=== PATIENT | female | born 1985 | race American Indian/Alaskan Native ===

== ENCOUNTER 2021-11-13 11:25 | Inpatient (IN) | payer SELFPAY ==
--- NOTE | 2021-11-13 12:41 | Emergency Department Report ---
Blank Doc - Documentation Documentation: 36-year-old female that presents with bowel pain with nausea vomiting. 1- This is a initial triage assessment/medical screening only. Full assessment and work-up will be completed once the patient is in proper hospital gown, ED bed and in a private room setting. This initial assessment/diagnostic orders/clinical plan/ treatment(s) is/are subject to change based on pt's health status, clinical progression and re-assessment by fellow clinical providers in the ED. Further treatment and workup at subsequent clinical providers discretion. Patient/guardians urged not to elope from ED as their condition may be serious if not clinically assessed and managed. 2-labs 3-UA The patient was evaluated in the emergency department for symptoms described in the history of present illness. He/she was evaluated in the context of the global COVID-19 pandemic, which necessitated consideration that the patient might be at risk for infection with the virus that causes COVID-19. Institutional protocols and algorithms that pertain to the evaluation of patients at risk for COVID-19 are in a state of rapid change based on information released by regulatory bodies including the CDC and federal and state organizations. These policies and algorithms were followed during the patient's care in the emergency department. Please note that these policies, procedures and recommendations changed on a rapid basis.
[2021-11-13 12:58] LABS: Hematocrit 44.6 % (30.3-42.9); Hemoglobin 14.8 gm/dl (10.1-14.3); Mean Corpuscular HGB Conc 33 % (30-34); Mean Corpuscular Volume 81 fl (79-97); Platelet Count 294 K/mm3 (140-440); Red Cell Distribution Width 13.8 % (13.2-15.2)
[2021-11-13 13:19] LABS: Alanine Aminotransferase 17 units/L (7-56); Albumin 4.7 g/dL (3.9-5); BUN/Creatinine Ratio 13; Blood Urea Nitrogen 9 mg/dL (7-17); Calcium 9.6 mg/dL (8.4-10.2); Hemolysis Index 10
[2021-11-13 14:08] LABS: Basophils % (Manual) 0 % (0.0-1.8); Eosinophils % (Manual) 0 % (0.0-4.3); Monocytes % (Manual) 0 % (0.0-7.3); Total Cells Counted 100
[2021-11-13 14:09] LABS: Anisocytosis 1+; Platelet Estimate Consistent w Auto
[2021-11-13] MEDS ORDERED: ONDANSETRON 4 MG/2 ML INJ IV ONE (16:13)
[2021-11-13] MEDS ORDERED: SODIUM CHLORIDE 0.9% 1000 ML 1,000 ML IV ONE (16:13)
[2021-11-13] MEDS ORDERED: PANTOPRAZOLE 40 MG INJ IV ONE (16:14)
--- NOTE | 2021-11-13 19:48 | Cat Scan Report ---
CT ABDOMEN AND PELVIS WITH CONTRAST INDICATION / CLINICAL INFORMATION: pain. TECHNIQUE: Axial CT images were obtained through the abdomen and pelvis after 100 IV contrast. All C T scans at this location are performed using CT dose reduction for ALARA by means of automated exposu re control. COMPARISON: None available. FINDINGS: LOWER CHEST: No significant abnormality. LIVER: No significant abnormality. GALLBLADDER: No significant abnormality. BILE DUCTS: No significant abnormality. PANCREAS: No significant abnormality. SPLEEN: No significant abnormality. ADRENALS: No significant abnormality. RIGHT KIDNEY / URETER: Tiny cysts. LEFT KIDNEY / URETER: No significant abnormality. STOMACH / SMALL BOWEL: Small hernia with distal esophageal thickening. COLON: Mild to moderate thickening and surrounding pericolic injection, relatively diffusely. Minimal distention. Minimal diverticula distally. APPENDIX: Borderline caliber dilation 8 mm at the mid distal segment. Equivocal mild periappendiceal fat injection. PERITONEUM: No free fluid. No free air. No fluid collection. LYMPH NODES: No significant adenopathy. AORTA / ARTERIES: No significant abnormality. IVC / VEINS: No significant abnormality. URINARY BLADDER: No significant abnormality. REPRODUCTIVE ORGANS: No significant abnormality. ADDITIONAL FINDINGS: None. SKELETAL SYSTEM: No significant abnormality. IMPRESSION: 1. Borderline dilation of the mid distal aspect of the appendix with suggestion of trace periappendic eal inflammatory change, appearances concerning for early, uncomplicated appendicitis in the appropri ate setting. If there is clinical and/or biochemical uncertainty, consider short interval interval re peat examination to include oral contrast. 2. Features of mild diffuse colitis, potentially accentuated on the basis only partial distention. No complicating features. 2. Mild distal esophageal thickening supporting esophagitis, potentially reflux in nature. Signer Name: Onelia Wilson MD Signed: 11/13/2021 7:44 PM Workstation Name: [email or web address] (formerly [email or web address])
[2021-11-13] MEDS ORDERED: PIPERACILLIN/TAZOBACTAM 3.375 3.375 GM/50 ML BAG IV ONE (20:03)
[2021-11-13 21:06] LABS: Color,Urine Colorless (Yellow)
[2021-11-13 21:10] LABS: HCG Qualitative,Urine Negative (Negative)
[2021-11-13 21:15] LABS: Amphetamine Screen,Urine Negative; Benzodiazepines Screen,Urine Negative; Cocaine Screen,Urine Negative; Methadone Screen,Urine Negative; Opiate Screen,Urine Negative
[2021-11-13 21:34] LABS: Cannabinoid Screen,Urine Positive
--- NOTE | 2021-11-13 22:09 | Emergency Department Report ---
ED General Adult HPI - General Chief complaint: Nausea/Vomiting/Diarrhea Stated complaint: THROWING UP BLOOD Time Seen by Provider: 11/13/21 12:34 Source: patient Mode of arrival: Wheelchair Limitations: No Limitations - History of Present Illness Initial comments: nausea, vomiting. onset today. no urinary complaint. no fever no rash -: Gradual, hour(s) Location: abdomen Radiation: non-radiation Severity scale (0 -10): 2 Improves with: none Worsens with: none Associated Symptoms: nausea/vomiting Treatments Prior to Arrival: none - Related Data Allergies Allergy/AdvReac Type Severity Reaction Status Date / Time No Known Allergies Allergy Verified 11/13/21 12:27 ED Review of Systems ROS: Stated complaint: THROWING UP BLOOD Other details as noted in HPI Constitutional: denies: chills, fever Eyes: denies: eye pain, eye discharge, vision change ENT: denies: ear pain, throat pain Respiratory: denies: cough, shortness of breath, wheezing Cardiovascular: denies: chest pain, palpitations Endocrine: no symptoms reported Gastrointestinal: denies: abdominal pain, nausea, diarrhea Genitourinary: denies: urgency, dysuria, discharge Musculoskeletal: denies: back pain, joint swelling, arthralgia Skin: denies: rash, lesions Neurological: denies: headache, weakness, paresthesias Psychiatric: denies: anxiety, depression Hematological/Lymphatic: denies: easy bleeding, easy bruising ED Past Medical Hx - Past Medical History Previous Medical History?: No Hx Hypertension: No Hx CVA: No ED Physical Exam - General Limitations: No Limitations General appearance: alert, in no apparent distress - Head Head exam: Present: atraumatic, normocephalic - Eye Eye exam: Present: normal appearance - ENT ENT exam: Present: mucous membranes moist - Neck Neck exam: Present: normal inspection - Respiratory Respiratory exam: Present: normal lung sounds bilaterally. Absent: respiratory distress - Cardiovascular Cardiovascular Exam: Present: regular rate, normal rhythm. Absent: systolic murmur, diastolic murmur, rubs, gallop - GI/Abdominal GI/Abdominal exam: Present: tenderness, normal bowel sounds - Extremities Exam Extremities exam: Present: normal inspection - Back Exam Back exam: Present: normal inspection - Neurological Exam Neurological exam: Present: alert, oriented X3 - Psychiatric Psychiatric exam: Present: normal affect, normal mood - Skin Skin exam: Present: warm, dry, intact, normal color. Absent: rash ED Course Vital Signs 11/13/21 11/13/21 12:26 15:24 Temperature 98 F 98.7 F Pulse Rate 64 80 Respiratory 16 18 Rate Blood Pressure 120/82 128/78 [Left] O2 Sat by Pulse 99 100 Oximetry ED Medical Decision Making - Lab Data Result diagrams: 11/13/21 12:41 11/13/21 12:41 Critical care attestation.: If time is entered above; I have spent that time in minutes in the direct care of this critically ill patient, excluding procedure time. ED Disposition Clinical Impression: Appendicitis, Acute esophagitis, Nausea & vomiting, Leukocytosis Disposition: ADMITTED INPATIENT Is pt being admited?: Yes Does the pt Need Aspirin: No Condition: Stable Referrals: PRIMARY CARE, [Primary Care Provider] - 3-5 Days
[2021-11-13] MEDS ORDERED: MAGNESIUM HYDROXIDE (MOM) ORAL LIQD UDC PO PRN (23:05)
[2021-11-13] MEDS ORDERED: ACETAMINOPHEN 325 MG TAB PO PRN (23:05)
[2021-11-13] MEDS ORDERED: MORPHINE 2 MG/1 ML INJ IV PRN (23:05)
[2021-11-13] MEDS ORDERED: MORPHINE 4 MG/1 ML INJ IV PRN (23:05)
[2021-11-13] MEDS ORDERED: ONDANSETRON 4 MG/2 ML INJ IV PRN (23:05)
[2021-11-13] MEDS ORDERED: SODIUM CHLORIDE 0.9% 1000 ML 1,000 ML IV SCH (23:15)
--- NOTE | 2021-11-13 23:15 | History and Physical Report ---
History of Present Illness Date of examination: 11/13/21 Date of admission: 11/13/2021 Chief complaint: Nausea and vomiting History of present illness: 36-year-old -[place] female with no significant past medical history presenting in the emergency room today complaining of nausea and vomiting and some epigastric discomfort. Symptoms have been ongoing over the course of the day. She denies any fever or chills, no chest pain or shortness of breath, no headache or dizziness and no diaphoresis. Patient denies any sick contacts and no recent travel. Patient works with a [employer] agency. Work-up in the emergency room today, labs are significant for leukocytosis of 20.5, hemoglobin of 14.8 and hematocrit of 44.6. Urinalysis was essentially within normal limits. UDS was significant for marijuana. CT of the abdomen and pelvis were concerning for early uncomplicated appendicitis, there is also mild distal esophageal thickening supporting esophagitis. General surgeon on-call has been notified and consulted by the ER physician. Past History Past Medical History: No medical history Past Surgical History: No surgical history Social history: smoking (Smokes marijuana occasionally), alcohol abuse (Drinks alcohol occasionally) Family history: no significant family history Medications and Allergies Allergies Allergy/AdvReac Type Severity Reaction Status Date / Time No Known Allergies Allergy Verified 11/13/21 12:27 Active Meds: Active Medications Acetaminophen (Acetaminophen 325 Mg Tab) 650 mg PO Q4H PRN PRN Reason: Pain MILD(1-3)/Fever >100.5/LYMAN Sodium Chloride (Nacl 0.9% 1000 Ml) 1,000 mls @ 125 mls/hr IV DIRECT KADEN Magnesium Hydroxide (Magnesium Hydroxide (Mom) Oral Liqd Udc) 30 ml PO Q4H PRN PRN Reason: Constipation Morphine Sulfate (Morphine 2 Mg/1 Ml Inj) 2 mg IV Q4H PRN PRN Reason: Pain, Moderate (4-6) Morphine Sulfate (Morphine 4 Mg/1 Ml Inj) 4 mg IV Q4H PRN PRN Reason: Pain , Severe (7-10) Ondansetron HCl (Ondansetron 4 Mg/2 Ml Inj) 4 mg IV Q8H PRN PRN Reason: Nausea And Vomiting Sodium Chloride (Sodium Chloride 0.9% 10 Ml Flush Syringe) 10 ml IV BID KADEN Sodium Chloride (Sodium Chloride 0.9% 10 Ml Flush Syringe) 10 ml IV PRN PRN PRN Reason: LINE FLUSH Review of Systems Constitutional: no fever, no chills Ears, nose, mouth and throat: no nasal congestion, no sore throat Cardiovascular: no chest pain, no palpitations Respiratory: no cough, no shortness of breath Gastrointestinal: abdominal pain, nausea, vomiting, no diarrhea Genitourinary Female: no pelvic pain, no flank pain, no dysuria, no hematuria Musculoskeletal: no neck pain, no low back pain Integumentary: no rash, no pruritis Neurological: no headaches, no confusion Psychiatric: no anxiety, no depression Endocrine: no polyphagia, no polydipsia, no polyuria, no nocturia Exam - Constitutional Vitals: Temp Pulse Resp BP Pulse Ox 98.7 F 80 18 128/78 100 11/13/21 15:24 11/13/21 15:24 11/13/21 15:24 11/13/21 15:24 11/13/21 15:24 General appearance: Present: no acute distress, well-nourished - EENT Eyes: Present: PERRL, EOM intact. Absent: scleral icterus ENT: hearing intact, clear oral mucosa, dentition normal - Neck Neck: Present: supple, normal ROM - Respiratory Respiratory effort: normal Respiratory: bilateral: CTA - Cardiovascular Rhythm: regular Heart Sounds: Present: S1 & S2. Absent: gallop, systolic murmur, diastolic murmur, rub, click - Extremities Extremities: no ischemia, No edema, Full ROM Peripheral Pulses: within normal limits - Abdominal General gastrointestinal: Present: soft, tender (Mild tenderness in the right lower quadrant, no rebound tenderness and no guarding.), non-distended, normal bowel sounds. Absent: mass - Integumentary Integumentary: Present: clear, warm, dry, normal turgor. Absent: rash - Musculoskeletal Musculoskeletal: strength equal bilaterally - Psychiatric Psychiatric: appropriate mood/affect, intact judgment & insight, memory intact - Neurologic Neurologic: CNII-XII intact, no focal deficits, moves all extremities Results - Labs CBC & Chem 7: 11/13/21 12:41 11/13/21 12:41 Labs: Abnormal lab results 11/13/21 11/13/21 11/13/21 Range/Units 12:41 12:41 16:59 WBC 20.5 H (4.5-11.0) K/mm3 RBC 5.50 H (3.65-5.03) M/mm3 Hgb 14.8 H (10.1-14.3) gm/dl Hct 44.6 H (30.3-42.9) % MCH 27 L (28-32) pg Seg Neuts % (Manual) 95.0 H (40.0-70.0) % Lymphocytes % (Manual) 5.0 L (13.4-35.0) % Seg Neutrophils # Man 19.5 H (1.8-7.7) K/mm3 Lymphocytes # (Manual) 1.0 L (1.2-5.4) K/mm3 Glucose 136 H (65-100) mg/dL Total Creatine Kinase (30-135) units/L Lipase 11 L 11 L (13-60) units/L // Range/Units 16:59 WBC (4.5-11.0) K/mm3 RBC (3.65-5.03) M/mm3 Hgb (10.1-14.3) gm/dl Hct (30.3-42.9) % MCH (28-32) pg Seg Neuts % (Manual) (40.0-70.0) % Lymphocytes % (Manual) (13.4-35.0) % Seg Neutrophils # Man (1.8-7.7) K/mm3 Lymphocytes # (Manual) (1.2-5.4) K/mm3 Glucose (65-100) mg/dL Total Creatine Kinase 144 H (30-135) units/L Lipase (13-60) units/L Assessment and Plan Assessments: 1. Abdominal pain 2. Nausea and vomiting 3. Acute appendicitis 4. Acute esophagitis Plan: 1. Patient admitted and placed on IV fluid IV analgesic medication 2. Patient kept NPO. 3. Consult placed to general surgery for evaluation and recommendations. 4. We will place patient on proton pump inhibitor. We will request GI evaluation. DVT prophylaxis: Sequential compression device CODE STATUS: Full code
[2021-11-14] MEDS: PIPERACILLIN/TAZOBACTAM 3.375 3.375 GM/50 ML BAG IV SCH ×3 (05:58→22:01)
[2021-11-14 08:03] LABS: BUN/Creatinine Ratio 9; Blood Urea Nitrogen 8 mg/dL (7-17); Calcium 9.4 mg/dL (8.4-10.2); Hemolysis Index 8
[2021-11-14] MEDS: PANTOPRAZOLE 40 MG INJ IV SCH ×3 (08:40→22:03)
[2021-11-14] MEDS ORDERED: D5W/0.9% NACL 1,000 ML IV SCH (11:00)
--- NOTE | 2021-11-14 13:54 | Event Note ---
Date: 11/14/21 Full GI consult dictate - awaiting surgery consult for ?appendicitis - diet when ok with surgery - possible egd in am based on progress - will follow
--- NOTE | 2021-11-14 14:03 | Consultation ---
History of Present Illness Consult date: 11/14/21 Reason for consult: abdominal pain - History of present illness History of present illness: 36 yo female who presented to the ED c/o epigastric/chest pain with nausea and hematemesis. ER physician ordered a CT abdomen and pelvis which showed possible early appendicitis. Pt states she feels much better c/w yesterday and she now denies nausea, further vomiting or abdominal pain. Past History Past Medical History: No medical history Past Surgical History: No surgical history Social history: smoking (Smokes marijuana occasionally), alcohol abuse (Drinks alcohol occasionally) Family history: no significant family history Medications and Allergies Allergies Allergy/AdvReac Type Severity Reaction Status Date / Time No Known Allergies Allergy Verified 11/13/21 12:27 Home Medications Medication Instructions Recorded Confirmed Last Taken Type No Known Home Medications [No 11/14/21 11/14/21 Unknown History Reported Home Medications] Active Meds: Active Medications Acetaminophen (Acetaminophen 325 Mg Tab) 650 mg PO Q4H PRN PRN Reason: Pain MILD(1-3)/Fever >100.5/LYMAN Piperacillin Sod/Tazobactam Sod (Zosyn/Ns 3.375gm/50ml) 3.375 gm in 50 mls @ 100 mls/hr IV Q8H KADEN; Protocol Last Admin: 11/14/21 13:05 Dose: 100 mls/hr Dextrose/Sodium Chloride (D5ns) 1,000 mls @ 100 mls/hr IV DIRECT KADEN Last Admin: 11/14/21 13:05 Dose: 100 mls/hr Magnesium Hydroxide (Magnesium Hydroxide (Mom) Oral Liqd Udc) 30 ml PO Q4H PRN PRN Reason: Constipation Morphine Sulfate (Morphine 2 Mg/1 Ml Inj) 2 mg IV Q4H PRN PRN Reason: Pain, Moderate (4-6) Morphine Sulfate (Morphine 4 Mg/1 Ml Inj) 4 mg IV Q4H PRN PRN Reason: Pain , Severe (7-10) Ondansetron HCl (Ondansetron 4 Mg/2 Ml Inj) 4 mg IV Q8H PRN PRN Reason: Nausea And Vomiting Last Admin: 11/14/21 03:39 Dose: 4 mg Pantoprazole Sodium (Pantoprazole 40 Mg Inj) 40 mg IV BID KADEN Last Admin: 11/14/21 11:23 Dose: Not Given Sodium Chloride (Sodium Chloride 0.9% 10 Ml Flush Syringe) 10 ml IV BID KADEN Last Admin: 11/14/21 13:05 Dose: Not Given Sodium Chloride (Sodium Chloride 0.9% 10 Ml Flush Syringe) 10 ml IV PRN PRN PRN Reason: LINE FLUSH Review of Systems All systems: negative (none) Exam Vital Signs Temp Pulse Resp BP Pulse Ox 98 F 64 16 120/82 99 11/13/21 12:11/13/21 12:11/13/21 12:11/13/21 12:11/13/21 12:26 - General physical appearance Positive: well developed, well nourished, no distress - Eyes Positive: PERRL, normal occular movement - ENT Positive: normal pinna, normal nares, normal mucosa, no hearing loss, no congestion - Neck Positive: no masses, no bruits, trachea midline, no venous distension - Respiratory Positive: normal expansion, normal respiratory effort, clear to auscultation - Cardiovascular Rhythm: regular Heart Sounds: Present: S1 & S2. Absent: rub, click - Extremities Extremities: no ischemia, pulses symmetrical, No edema - Breasts Breasts: normal, no mass, no skin changes - Abdomen Abdomen: Present: soft, bowel sounds normal. Absent: tender, distended, rebound, guarding Hernia: none - Genitourinary Male Genitourinary: normal Female Genitourinary: normal - Integumentary no rash, no growths, no abnormal pigmentation - Neurologic Neurologic: alert and oriented to time, place and person, motor strength and sensation are grossly intact - Musculoskeletal normal gait, normal posture - Psychiatric Psychiatric: appropriate mood/affect, intact judgment & insight Results - Labs 11/13/21 12:41 11/14/21 05:14 Abnormal lab results 11/13/21 11/13/21 11/13/21 Range/Units 12:41 16:59 16:59 Seg Neuts % (Manual) 95.0 H (40.0-70.0) % Lymphocytes % (Manual) 5.0 L (13.4-35.0) % Seg Neutrophils # Man 19.5 H (1.8-7.7) K/mm3 Lymphocytes # (Manual) 1.0 L (1.2-5.4) K/mm3 Potassium (3.6-5.0) mmol/L Total Creatine Kinase 144 H (30-135) units/L Lipase 11 L (13-60) units/L 11/14/21 Range/Units 05:14 Seg Neuts % (Manual) (40.0-70.0) % Lymphocytes % (Manual) (13.4-35.0) % Seg Neutrophils # Man (1.8-7.7) K/mm3 Lymphocytes # (Manual) (1.2-5.4) K/mm3 Potassium 3.5 L (3.6-5.0) mmol/L Total Creatine Kinase (30-135) units/L Lipase (13-60) units/L Diabetes panel 11/14/21 Range/Units 05:14 Sodium 139 (137-145) mmol/L Potassium 3.5 L (3.6-5.0) mmol/L Chloride 98.5 (98-107) mmol/L Carbon Dioxide 23 (22-30) mmol/L BUN 8 (7-17) mg/dL Creatinine 0.9 (0.6-1.2) mg/dL Glucose 88 (65-100) mg/dL Calcium 9.4 (8.4-10.2) mg/dL Calcium panel 11/14/21 Range/Units 05:14 Calcium 9.4 (8.4-10.2) mg/dL Pituitary panel 11/14/21 Range/Units 05:14 Sodium 139 (137-145) mmol/L Potassium 3.5 L (3.6-5.0) mmol/L Chloride 98.5 (98-107) mmol/L Carbon Dioxide 23 (22-30) mmol/L BUN 8 (7-17) mg/dL Creatinine 0.9 (0.6-1.2) mg/dL Glucose 88 (65-100) mg/dL Calcium 9.4 (8.4-10.2) mg/dL Adrenal panel 11/14/21 Range/Units 05:14 Sodium 139 (137-145) mmol/L Potassium 3.5 L (3.6-5.0) mmol/L Chloride 98.5 (98-107) mmol/L Carbon Dioxide 23 (22-30) mmol/L BUN 8 (7-17) mg/dL Creatinine 0.9 (0.6-1.2) mg/dL Glucose 88 (65-100) mg/dL Calcium 9.4 (8.4-10.2) mg/dL - Imaging CT scan - abdomen: report reviewed CT scan - pelvis: report reviewed Assessment and Plan - Patient Problems (1) Nausea & vomiting Current Visit: Yes Status: Acute Plan to address problem: 1) Nausea and vomiting as well as epigastric/chest pain have resolved. Pt never c/o lower abdominal pain. I have ordered clear liquids. Highly doubt she has appendicitis. Recommend further evaluation per GI for h/o epigastric pain and hematemesis.
--- NOTE | 2021-11-14 14:49 | Progress Note ---
Assessment and Plan 36-year-old -[place] female with no significant past medical history presenting in the emergency room complaining of nausea and vomiting and some epigastric discomfort. Work-up in the emergency room today, labs are significant for leukocytosis of 20.5, hemoglobin of 14.8 and hematocrit of 44.6. Urinalysis was essentially within normal limits. UDS was significant for marijuana. CT of the abdomen and pelvis were concerning for early uncomplicated appendicitis, there is also mild distal esophageal thickening supporting esophag itis. General surgeon on-call has been notified and consulted by the ER physician. Assessment and plan: 1. Abdominal pain 2. Nausea and vomiting 3. Acute appendicitis 4. Acute esophagitis Plan: -- Patient admitted and placed on IV fluid IV analgesic medication -- Patient kept NPO. now started clear liquid -- Consult placed to general surgery for evaluation and recommendations - doubt for appendicitis -- patient on proton pump inhibitor. We will request GI evaluation. DVT prophylaxis: Sequential compression device CODE STATUS: Full code Subjective Date of service: 11/14/21 Interval history: Patient seen and examined. Medical records and medication list reviewed. No acute event overnight noted by the RN. Patient abdominal pain improved. Patient is tolerating clear liquid diet. Discussed plan of care at bedside with patient. Objective - Exam Narrative Exam: GENERAL: well-developed and well-nourished AAF lying on bed appeared to be in no discomfort. HEENT: Normocephalic. Atraumatic. No conjunctival congestion or icterus. Patient has moist mucous membranes. NECK: Supple. Trachea midline. CHEST/LUNGS: Clear to auscultated bilaterally, breathing nonlabored. No wheezes crackles or rhonchi. HEART/CARDIOVASCULAR: Regular in rate and rhythm. S1 and S2 positive. ABDOMEN: Abdomen is soft, nontender. Patient has normal bowel sounds. SKIN: There is no rash. Warm and dry. NEURO: No focal motor deficit. Follows command. MUSCULOSKELETAL: No joint effusion or tenderness. EXTRIMITY: No edema, no cyanosis or clubbing. PSYCH: Cooperative. - Constitutional Vitals: Vital Signs - 12hr 11/14/21 11/14/21 03:21 11:43 Respiratory 18 Rate O2 Sat by Pulse 98 97 Oximetry - Labs CBC & Chem 7: 11/14/21 20:36 11/14/21 05:14 Labs: Abnormal lab results 11/13/21 11/13/21 11/14/21 Range/Units 16:59 16:59 05:14 Potassium 3.5 L (3.6-5.0) mmol/L Total Creatine Kinase 144 H (30-135) units/L Lipase 11 L (13-60) units/L
--- NOTE | 2021-11-14 17:36 | Ultrasound Report ---
ULTRASOUND ABDOMEN, LIMITED INDICATION / CLINICAL INFORMATION: Epigastric pain. COMPARISON: None available. FINDINGS: PANCREAS: Visualized portion shows no significant abnormality. LIVER: No significant abnormality. Normal hepatopedal blood flow in the main portal vein. GALLBLADDER: No significant abnormality. BILE DUCTS: No significant abnormality. Common bile duct measures 2 mm. FREE FLUID: None. ADDITIONAL FINDINGS: None. IMPRESSION: 1. No significant sonographic abnormality of the right upper quadrant. Signer Name: Theodore Perez MD Signed: 11/14/2021 5:31 PM Workstation Name: [id number]
[2021-11-14 21:42] LABS: Basophils # (Auto) 0.1 K/mm3 (0.0-0.1); Basophils % (Auto) 0.4 % (0.0-1.8); Eosinophils % (Auto) 0.1 % (0.0-4.3); Hematocrit 43.4 % (30.3-42.9); Hemoglobin 13.9 gm/dl (10.1-14.3); Lymphocytes # (Auto) 2.7 K/mm3 (1.2-5.4); Lymphocytes % (Auto) 14.8 % (13.4-35.0); Mean Corpuscular HGB Conc 32 % (30-34); Mean Corpuscular Volume 83 fl (79-97); Monocytes % (Auto) 5.5 % (0.0-7.3); Platelet Count 281 K/mm3 (140-440); Red Blood Count 5.25 M/mm3 (3.65-5.03); Red Cell Distribution Width 13.8 % (13.2-15.2)
--- NOTE | 2021-11-15 00:15 | Consultation ---
DATE OF CONSULTATION: 11/14/2021 REFERRING PHYSICIAN: Dr. Leonarda Cain. INDICATION: 1. Nausea, vomiting. 2. Abnormal CT scan. HISTORY OF PRESENT ILLNESS: The patient is a 36-year-old black female who presents to the Emergency Room for nausea, vomiting and epigastric pain as well as coffee-ground emesis. The patient reports symptoms have been intermittent for the last few weeks, worse over the last 24-48 hours. The patient reports some mild dizziness and headaches. She reported some coffee-ground emesis. She denies any other specific GI complaints. The patient subsequently came to the Emergency Room where she had a CT scan, which raised the possibility of early appendicitis as well as the possibility of esophagitis. She was also noted to be having an increased white count. The patient subsequently was admitted and GI consulted to aid in management. The patient reports no significant lower abdominal pain. PAST MEDICAL HISTORY: Negative. MEDICATIONS: Reviewed and updated in chart. SOCIAL HISTORY: 1. Positive smoker. 2. Positive alcohol abuse and marijuana use. FAMILY HISTORY: Negative for colon cancer, IBD, or liver disease. REVIEW OF SYSTEMS: GENERAL: Reports some weakness. HEENT: Denies visual complaints or tinnitus. PULMONARY: No shortness of breath or chest pain. GASTROINTESTINAL: Reports epigastric pain and nausea, vomiting. All points of 13-point review of system otherwise negative. PHYSICAL EXAMINATION: VITAL SIGNS: Temperature of 98.5, pulse 65, respirations 18, blood pressure 119/70. GENERAL: Well nourished female in no acute distress. HEENT: Pupils round and reactive. PULMONARY: Clear to auscultation bilaterally. CARDIOVASCULAR: Regular rate and rhythm. Normal S1, S2. ABDOMEN: Positive bowel sounds, soft. SKIN: No obvious rashes. LABORATORY DATA: Pertinent for white count of 20.5, hemoglobin and hematocrit of 14.8 and 44.6, platelet count of 204. Chem-7 within normal limits. LFTs within normal limits. CT scan abdomen and pelvis performed on 11/13/2021, this is with contrast showed borderline dilation of the distal aspect of the appendix, raising the possibility of early appendicitis as well as mild diffuse colitis and mild distal esophageal thickening concerning for esophagitis. ASSESSMENT: A 36-year-old female presents with intermittent nausea, vomiting, worse over the last 24 hours with reported epigastric pain and coffee-ground emesis with a CT scan raising possible early appendicitis with mild colitis and possible esophagitis. The patient denies any significant lower abdominal pain and on exam today is fairly benign. Possibility of esophagitis secondary to nausea and vomiting. The patient was positive for cannabis. PLAN: 1. We will await surgery input as question of appendicitis. 2. PPI b.i.d. 3. Continue n.p.o. until cleared by surgery for diet. 4. Based on progress, consider EGD in a.m. if no plans for surgery and not tolerating p.o. 5. We will follow. TID: [id number] RECEIPT: [id number] CAB/RES
[2021-11-15] MEDS: PIPERACILLIN/TAZOBACTAM 3.375 3.375 GM/50 ML BAG IV SCH (07:21)
[2021-11-15 08:30] LABS: Hematocrit 42.5 % (30.3-42.9); Hemoglobin 13.5 gm/dl (10.1-14.3); Mean Corpuscular HGB Conc 32 % (30-34); Mean Corpuscular Volume 82 fl (79-97); Platelet Count 276 K/mm3 (140-440); Red Blood Count 5.17 M/mm3 (3.65-5.03); Red Cell Distribution Width 13.8 % (13.2-15.2)
[2021-11-15 08:50] LABS: BUN/Creatinine Ratio 6; Blood Urea Nitrogen 6 mg/dL (7-17); Calcium 8.8 mg/dL (8.4-10.2); Hemolysis Index 1
[2021-11-15] MEDS: PANTOPRAZOLE 40 MG INJ IV SCH (09:08)
[2021-11-15] MEDS ORDERED: metroNIDAZOLE 500 MG TAB PO SCH (10:00)
--- NOTE | 2021-11-15 13:35 | Anesthesia Day of Surgery ---
Anesthesia Day of Surgery - Day of Surgery Patient Examined: Yes Patient H&P Reviewed: Yes Patient is NPO: Yes
--- NOTE | 2021-11-15 13:37 | Anesthesia Consultation ---
Anesthesia Consult and Med Hx Date of service: 11/15/21 - Airway Anesthetic Teeth Evaluation: Good ROM Head & Neck: Adequate Mental/Hyoid Distance: Adequate Mallampati Class: Class II Intubation Access Assessment: Good - Pre-Operative Health Status ASA Pre-Surgery Classification: ASA2 Proposed Anesthetic Plan: MAC - Pulmonary Hx Smoking: Yes Hx Asthma: No Hx Pneumonia: No Hx Sleep Apnea: No - Cardiovascular System Hx Hypertension: No - Gastrointestinal Hx Gastroesophageal Reflux Disease: Yes - Hematic Hx Anemia: No Hx Sickle Cell Disease: No - Other Systems Hx Alcohol Use: Yes Hx Substance Use: Yes ([place])
[2021-11-15] MEDS ORDERED: propofoL 200 MG/20 ML VIAL IV ONE (13:53)
[2021-11-15] MEDS ORDERED: ONDANSETRON 4 MG/2 ML INJ ONE (13:53)
[2021-11-15] MEDS ORDERED: fentaNYL 100 MCG/2 ML INJ ONE (13:54)
[2021-11-15] MEDS ORDERED: LIDOCAINE MPF (2%) 20 MG/1 ML VIAL 5 ML ONE (13:54)
[2021-11-15 14:31] VITALS: BP 126/87
--- NOTE | 2021-11-15 14:32 | Post Operative Note ---
Pre-op diagnosis: epigastric pain Post-op diagnosis: same Findings: EGD: hiatal hernia - mild/moderate gastritis (bx's) - negative other Anesthesia: MAC Surgeon: EDWARD PALACIOS Estimated blood loss: none Pathology: list Specimen disposition: to lab Condition: stable Disposition: floor
[2021-11-15] MEDS ORDERED: POTASSIUM CHLORIDE ER 20 MEQ TAB PO NR (15:56)
--- NOTE | 2021-11-15 15:59 | Discharge Summary ---
Providers - Providers Date of Admission: 11/13/21 23:05 Date of discharge: 11/15/21 Attending physician: CHRISTINA SCOTT MD 11/13/21 20:13 Consult to Physician [CONS] Stat Comment: Consulting Provider: ROSETTA FUNK Physician Instructions: Reason For Exam: appy 11/13/21 23:24 Consult to Physician [CONS] Routine Comment: Consulting Provider: WELLINGTON CALDERON Physician Instructions: Reason For Exam: Acute esophagitis Primary care physician: POST OFFICE MANAGER Hospitalization Reason for admission: Concern for appendicitisruled out, leukocytosis, hypokalemia Condition: Stable Pertinent studies: Reviewed. Procedures: Upper endoscopy (11/15/2021) revealing esophagitis, mild/moderate gastritis, and hiatal hernia. Hospital course: Patient is a 36-year-old female with no significant past medical history who presented to the ED with complaints of nausea, vomiting, and epigastric discomfort. Patient denied any fevers, chills, hematuria, frequency, dysuria, chest pain, chest pressure, shortness of breath, recent travel, or sick contacts. In the ED, the patient was found to be hemodynamically stable. Patient's labs were remarkable for potassium 3.5, WBC 20.5. Patient underwent CT abdomen and pelvis with contrast revealing "borderline dilatation of the mid distal aspect of the appendix with suggestion of trace. Appendiceal inflammatory change, appearance is concerning for early, uncomplicated appendicitis in the appropriate setting. Features of mild diffuse colitis, potentially accentuated on the basis of only partial distention. Mild distal esophageal thickening supporting esophagitis, potential reflux in nature." Gastroenterology was consulted for further management. Patient underwent abdominal ultrasound that was unremarkable for abnormality of right upper quadrant. Patient underwent EGD (11/16/2019) revealing a hiatal hernia and mild/moderate gastritis (biopsies were taken). Patient's leukocytosis has since resolved as well as her abdominal pain. Patient was found to be unremarkable for coronavirus. Patient is medically cleared for discharge. Disposition: 01 HOME / SELF CARE / HOMELESS Final Discharge Diagnosis (Prints w/discharge instructions): Appendicitisruled out, moderate gastritis, acute esophagitis, abdominal pain, leukocytosis, hypokalemia Time spent for discharge: 45 min Core Measure Documentation - Palliative Care Palliative Care/ Comfort Measures: Not Applicable - Core Measures Any of the following diagnoses?: none Exam - Constitutional Vitals: Temp Pulse Resp BP Pulse Ox 97.8 F 58 L 14 126/87 98 11/15/21 14:13 11/15/21 14:30 11/15/21 14:30 11/15/21 14:30 11/15/21 14:30 General appearance: Present: no acute distress, well-nourished - EENT Eyes: Present: PERRL, EOM intact ENT: hearing intact, clear oral mucosa - Neck Neck: Present: supple, normal ROM - Respiratory Respiratory effort: normal Respiratory: bilateral: CTA - Cardiovascular Rhythm: regular Heart Sounds: Present: S1 & S2 - Extremities Extremities: no ischemia, pulses intact, pulses symmetrical, No edema, normal temperature, normal color, Full ROM Peripheral Pulses: within normal limits - Abdominal General gastrointestinal: Present: soft, non-tender, non-distended, normal bowel sounds Female genitourinary: Present: deferred - Rectal Rectal Exam: deferred - Integumentary Integumentary: Present: clear, warm, dry - Musculoskeletal Musculoskeletal: strength equal bilaterally - Psychiatric Psychiatric: appropriate mood/affect, intact judgment & insight, memory intact, cooperative - Neurologic Neurologic: CNII-XII intact, moves all extremities - Allied Health Allied health notes reviewed: nursing Plan Activity: advance as tolerated Diet: regular Additional Instructions: Patient is a 36-year-old female with no significant past medical history who presented to the ED with complaints of nausea, vomiting, and epigastric discomfort. Patient denied any fevers, chills, hematuria, frequency, dysuria, chest pain, chest pressure, shortness of breath, recent travel, or sick contacts. In the ED, the patient was found to be hemodynamically stable. Patient's labs were remarkable for potassium 3.5, WBC 20.5. Patient underwent CT abdomen and pelvis with contrast revealing "borderline dilatation of the mid distal aspect of the appendix with suggestion of trace. Appendiceal inflammatory change, appearance is concerning for early, uncomplicated appendicitis in the appropriate setting. Features of mild diffuse colitis, potentially accentuated on the basis of only partial distention. Mild distal esophageal thickening supporting esophagitis, potential reflux in nature." Gastroenterology was consulted for further management. Patient underwent abdominal ultrasound that was unremarkable for abnormality of right upper quadrant. Patient underwent EGD (11/16/2019) revealing a hiatal hernia and mild/moderate gastritis (biopsies were taken). Patient's leukocytosis has since resolved as well as her abdominal pain. Patient was found to be unremarkable for coronavirus. Patient is medically cleared for discharge. Care Plan Goals: Patient is medically clear for discharge. Assessment: Patient is a 36-year-old female with no significant past medical history who p resented to the ED with complaints of nausea, vomiting, and epigastric discomfort. Patient denied any fevers, chills, hematuria, frequency, dysuria, chest pain, chest pressure, shortness of breath, recent travel, or sick contacts. In the ED, the patient was found to be hemodynamically stable. Patient's labs were remarkable for potassium 3.5, WBC 20.5. Patient underwent CT abdomen and pelvis with contrast revealing "borderline dilatation of the mid distal aspect of the appendix with suggestion of trace. Appendiceal inflammatory change, appearance is concerning for early, uncomplicated appe ndicitis in the appropriate setting. Features of mild diffuse colitis, potentially accentuated on the basis of only partial distention. Mild distal esophageal thickening supporting esophagitis, potential reflux in nature." Gastroenterology was consulted for further management. Patient underwent abdominal ultrasound that was unremarkable for abnormality of right upper quadrant. Patient underwent EGD (11/16/2019) revealing a hiatal hernia and mild/moderate gastritis (biopsies were taken). Patient's leukocytosis has since resolved as well as her abdominal pain. Patient was found to be unremarkable for coronavirus. Patient is medically cleared for discharge. Follow up with: KIMMY OCAMPO MD [Primary Care Provider] - 3-5 Days EDWARD PALACIOS MD [Staff Physician] - 6 Weeks Forms: Work/School Release Form
--- NOTE | 2021-11-15 16:14 | Post Anesthesia Evaluation ---
- Post Anesthesia Evaluation Patient Participated: Yes Airway Patent: Yes Stable Respiratory Function: Yes Nausea/Vomiting: No Temp > 96.8F: Yes Pain Manageable: Yes Adequeate Hydration: Yes Anesthesia Complications: No Block Receding Appropriately: Not Applicable Patient on Ventilator: No
--- NOTE | 2021-11-15 18:35 | Operative Report ---
DATE OF SURGERY: 11/15/2021 PROCEDURE: EGD with cold biopsies. INDICATIONS: 1. Epigastric pain. 2. Nausea, vomiting. MEDICATIONS: Propofol per [employer]IA[employer]. COMPLICATIONS: None. DESCRIPTION OF PROCEDURE: The patient was brought to the procedure suite. The patient had the procedure discussed with her at length. All risks, complications and benefits discussed, after which the patient signed for the procedure to be performed. The patient was placed in left lateral decubitus position. Mouth block placed in the patient's oral cavity. After adequate sedation with medication as above, endoscope placed in the mouth and brought to level of second portion of duodenum. Retroflexion view performed. The patient's vital signs remained stable throughout the procedure. FINDINGS: There was a small to medium hiatal hernia noted at 38 cm from the gums. The esophagus otherwise grossly appeared normal. There was moderate inflammation with irritation noted extending from the gastric cardia in an area going towards the fundus and lesser curvature. This was moderately inflamed. Biopsies were taken of this area and sent to pathology. The remaining stomach otherwise grossly appeared normal. Duodenum appeared to be normal. Retroflexion view performed in the stomach showed no other pathology other than noted above. The patient tolerated the procedure well. No complications during this procedure. IMPRESSION: 1. Hiatal hernia. 2. Otherwise, normal esophagus. 3. Moderate erosive gastritis noted from the gastric cardia extending towards the fundus with no bleeding stigmata. Biopsy taken and sent to pathology. Remaining stomach otherwise appeared to be normal. Duodenum appeared to be normal. RECOMMENDATIONS: 1. Follow up biopsy results. 2. PPI daily. 3. Advance diet. 4. Okay to discharge from GI standpoint with followup as an outpatient. TID: [id number] RECEIPT: [id number] GERALD/WHITNEY/CHRISTOPHER
== END 2021-11-15 17:30 | disposition home or self-care (01) | DRG 379 ==
LOC: ED 11:25 → 3A 23:05
PROVIDERS: ADMIT Internal Medicine Geriatric Medicine; ATTEND Student in an Organized Health Care Education/Training Program
PROC: 0DB68ZX Excision of Stomach, Via Natural or Artificial Opening Endoscopic, Diagnostic (ICD-10-PCS; principal; 2021-11-15)
DX: K29.71 Gastritis, unspecified, with bleeding (principal); D72.829 Elevated white blood cell count, unspecified; Z20.822 Contact with and (suspected) exposure to COVID-19; K44.9 Diaphragmatic hernia without obstruction or gangrene; E87.6 Hypokalemia; K21.00 Gastro-esophageal reflux disease with esophagitis, without bleeding
CPT/HCPCS: 36415; 74177; 76705; 80048; 80053; 80307; 80320; 81001; 81025; 82010; 82150; 82550; 82962; 83690; 84703; 85007; 85025; 85027; 86140; 88305; 96374; 96375; 99285; G0378; J3490; C9113; G0480; J2405; J2543; J2704; J3010; J7030; J7042; Q9967; U0003